=== PATIENT | male | born 1935 | race Caucasian/White ===

== ENCOUNTER 2020-07-10 20:19 | Inpatient (IN) | payer MEDICAID, SELFPAY ==
[~2020-07-10] VITALS: Ht 177.8 cm; Wt 81.6 kg
[2020-07-10 21:12] VITALS: BP 141/60
--- NOTE | 2020-07-10 21:14 | NUR ---
Triaged and waiting in ambulance.
--- NOTE | 2020-07-10 21:28 | NUR ---
PT ANGELA ALS. TAKEN TO BED 2
--- NOTE | 2020-07-10 21:30 | NUR ---
87 Y/O MALE BIBA FROM HOME C/O SOB AND LOW O2 SATS WHEN EMS ARRIVED. UNABLE TO OBTAIN ANY OTHER INFORMATION FROM THE PT AT THIS TIME DUE TO SEVERE SOB. CURRENT SATURATION OF 61% ON 15 L NRB. DIMINISHED LUNG SOUNDS THROUHGOUT BILATERALLY. PT IS USING ACCESSORY MUSCLES. ABD USE NOTED. RT CALLED TO START ON BIPAP. PT IS CONNECTED TO THE DIALYSIS TECHNICIAN. SIDE RAILSX1. BED IS LOCKED AND IN LOWEST POSITION. WILL CONTINUE TO MONITOR. PMH: UNABLE TO OTBAIN NKDA
[2020-07-10 21:31] LABS: BASOPHILS % (AUTO) 0.1 % (0.0-2.0); HEMOGLOBIN 14.1 g/dL (12.0-18.0); LYMPHOCYTES # (AUTO) 1.4 K/uL (2.0-11.5); MEAN CORPUSCULAR HEMOGLOBIN 29 pg (27-31); MEAN CORPUSCULAR HGB CONC 32 g/dL (33-37); MEAN CORPUSCULAR VOLUME 91.2 fL (80-94); MONOCYTES # (AUTO) 0.9 K/uL (0.8-1.0); MONOCYTES % (AUTO) 5.6 % (1.7-9.3); NEUTROPHILS # (AUTO) 14.5 K/uL (1.8-7.7); NEUTROPHILS % (AUTO) 86.3 % (42.2-75.2); PLATELET COUNT (AUTO) 229 K/uL (140-450); RED BLOOD CELL COUNT(AUTO) 4.83 MIL/uL (4.20-6.10); RED CELL DISTRIBUTION WIDTH 16.5 % (11.6-13.7); WHITE BLOOD COUNT (AUTO) 16.9 K/uL (4.8-10.8)
[2020-07-10 21:44] LABS: PROTHROMBIN TIME 11.4 secs (10.8-13.4)
[2020-07-10 22:05] LABS: ALBUMIN 2.9 g/dL (3.4-5.0); ANION GAP 26.3 (8-16); ASPARTATE AMINOTRANSFERASE 61 U/L (15-37); CARBON DIOXIDE 18.6 mmol/L (21-32); CHLORIDE 98 mmol/L (98-107); CREATININE 2.7 mg/dL (0.6-1.3); GLUCOSE 191 mg/dL (74-106); POTASSIUM 3.9 mmol/L (3.5-5.1); SODIUM SERUM 139 mmol/L (136-145); TOTAL BILIRUBIN 0.4 mg/dL (0.0-1.0); UREA NITROGEN, BLOOD 53 mg/dL (7-18)
--- NOTE | 2020-07-10 22:10 | NUR ---
pRT AT BEDSIDE
--- NOTE | 2020-07-10 22:15 | NUR ---
PT PLACED ON BIPAP BY RT
[2020-07-10 22:20] VITALS: BP 159/80
--- NOTE | 2020-07-10 22:21 | NUR ---
RSV, NOVEL, MILAN, FLU-A/B SWABS COLLECTED AND WALKED OVER TO LAB
[2020-07-10] MEDS ORDERED: HEPARIN PER PHARMACY MC ONE (22:30)
[2020-07-10] MEDS ORDERED: hePARIN / DEXT 5% PREMIX 250 ML IV ONE (22:30)
[2020-07-10] MEDS ORDERED: ZINC SULF 220 MG CAP PO ONE (22:35)
[2020-07-10] MEDS ORDERED: DEXAMETHASONE 10 MG/ML VIAL IVP ONE (22:35)
[2020-07-10] MEDS ORDERED: AZITHROMYCIN 1,000 MG in DEXTROSE 5% 500 ML IV ONE (22:35)
[2020-07-10 22:37] LABS: LACTATE DEHYDROGENASE 848 U/L (85-227)
[2020-07-10 22:46] LABS: RSV NEGATIVE (NEGATIVE)
[2020-07-10] MEDS ORDERED: ZOLPIDEM 5 MG TAB PO PRN (22:55)
[2020-07-10] MEDS ORDERED: POTASSIUM CHLORIDE 40 MEQ, LIDOCAINE MPF 1% 25 MG in NACL 0.9% 250 ML IV PRN (22:55)
[2020-07-10] MEDS ORDERED: DEXT 5% /NACL 0.9% 1,000 ML IV SCH (22:55)
[2020-07-10] MEDS ORDERED: ALBUTEROL HFA MDI 90 MCG/ACTUATION 8 GM INH PRN (22:55)
[2020-07-10] MEDS ORDERED: HYDROcodone/APAP 7.5/325 MG 1 TAB PO PRN (22:55)
[2020-07-10] MEDS ORDERED: guaiFENesin DM 200/20 MG-10 ML 10 ML UDC PO PRN (22:55)
[2020-07-10] MEDS ORDERED: DOCUSATE SODIUM 100 MG GELCAP PO PRN (22:55)
[2020-07-10] MEDS ORDERED: ACETAMINOPHEN 325 MG TAB PO PRN (22:55)
[2020-07-10] MEDS ORDERED: ONDANSETRON 4 MG/2 ML VIAL IM/IVP PRN (22:55)
[2020-07-10] MEDS ORDERED: NITROGLYCERIN 0.4 MG TAB SL PRN (23:00)
--- NOTE | 2020-07-10 23:00 | NUR ---
PT IS IN DISTRESS AND ANXIOUS WITH THE BIPAP MACHINE, ADMIT MD MADE AWARE. ERMD MADE AWARE OF TACHYPNEA WITH BIPAP AND INCREASED WORK OF BREATHING
[2020-07-10] MEDS ORDERED: cefTRIAXone 1,000 MG VIAL ONE (23:02)
[2020-07-10 23:03] LABS: C-REACTIVE PROTEIN QUANT 31.7 mg/dL (0.0-0.9)
[2020-07-10] MEDS ORDERED: FUROSEMIDE 40 MG/4 ML VIAL IVP SCH (23:05)
[2020-07-10] MEDS ORDERED: hePARIN / DEXT 5% PREMIX 250 ML IV SCH ×2 (23:20→23:50)
[2020-07-10] MEDS ORDERED: HEPARIN PER PHARMACY MC PRN ×2 (23:20→23:50)
[2020-07-11] VITALS (12 sets, daily range): BP systolic 85–159; BP diastolic 45–80
[2020-07-11] LABS: CHOL/HDL RATIO 2.8 (1-4.5); FREE T4 (FREE THYROXINE) 1.28 ng/dL (0.76-1.46); MAGNESIUM 2.3 mg/dL (1.8-2.4); PHOSPHORUS 5.7 mg/dL (2.5-4.9); THYROID STIMULATING HORMONE 3.2 uIU/mL (0.34-3.74)
--- NOTE | 2020-07-11 00:05 | NUR ---
NOTIFIED ADMIT OF ELEVATED RR IN THE 50s ON BIPAP. PER RT -RT REQUESTING ANXIOLYTICS. ADMIT MADE AWARE. RT TO CALL .
[2020-07-11] MEDS ORDERED: LORazepam 2 MG/ML VIAL IVP ONE (00:10)
[2020-07-11] MEDS ORDERED: hePARIN / DEXT 5% PREMIX 250 ML IV PRN (00:35)
--- NOTE | 2020-07-11 00:42 | NUR ---
PT IS IN DISTRESS AND CONTINUES TO ATTEMPT TO REMOVE BIPAP FACE MASK AT THIS TIME. PT REDIRECTED TO REST AND NOT TO REMOVE BIPAP
--- NOTE | 2020-07-11 00:43 | NUR ---
ERMD MADE AWARE OF POSSIBLE NEED FOR INTUBATION DUE TO PT REMOVING BIPAP MASK
[2020-07-11] MEDS ORDERED: AZITHROMYCIN 500 MG INJ VIAL IV ONE ×2 (00:46→00:50)
--- NOTE | 2020-07-11 00:52 | NUR ---
RT AT BEDSIDE
[2020-07-11] MEDS ORDERED: INTUBATION KIT MC ONE (00:55)
--- NOTE | 2020-07-11 00:55 | NUR ---
PT WAS INTUBATED
[2020-07-11] MEDS ORDERED: DOPPLER MC ONE (01:02)
--- NOTE | 2020-07-11 01:06 | NUR ---
PULSES RETURNED ON THE PT.
[2020-07-11] MEDS ORDERED: PROPOFOL 1000 MG/100 ML PREMIX 100 ML IV ONE ×2 (01:35→08:30)
--- NOTE | 2020-07-11 01:39 | NUR ---
PLEASE SEE CODE BLUE RECORD AND RESUSCIATION DOCUMENTATION TOOL.
--- NOTE | 2020-07-11 01:39 | NUR ---
ADMIT MD DELONG MADE AWARE OF CODE BLUE AND ROSC.
[2020-07-11] MEDS ORDERED: MORPHINE SULFATE 50 MG in NACL 0.9% 45 ML IV PRN (01:40)
--- NOTE | 2020-07-11 01:40 | NUR ---
PER MD DELONG. RASS SCORE AT -3.
[2020-07-11] MEDS ORDERED: PROPOFOL 200 MG/20 ML VIAL IV ONE (01:50)
--- NOTE | 2020-07-11 02:29 | NUR ---
GAVE REPORT TO VAIBHAV LUNA FOR TRANSFER OF CARE AT THIS TIME
--- NOTE | 2020-07-11 02:30 | NUR ---
CONT OF CARE STARTED AT THIS TIME.
[2020-07-11] MEDS ORDERED: MORPHINE SULFATE 10 MG/ML VIAL ONE (03:05)
--- NOTE | 2020-07-11 03:30 | NUR ---
RECEIVED REPORT FROM VAIBHAV AZUL.
--- NOTE | 2020-07-11 04:00 | NUR ---
F/C WAS PLACED WITH A COUDE 14 [place].
--- NOTE | 2020-07-11 05:15 | NUR ---
NG TUBE WAS PLACED. 16 [place]
--- NOTE | 2020-07-11 05:35 | NUR ---
PT WAS CLEANED UP AND BED WAS CHANGED. PT TOLERATED WELL. NO SIGN OF DISTRESS NOTED. RASS -3. QUIET ENVIRONMENT PROVIDED. WILL CONTINUE TO MONITOR
[2020-07-11 05:48] LABS: HEMATOCRIT 37.3 % (36-52); HEMOGLOBIN 12.1 g/dL (12.0-18.0); LYMPHOCYTES # (AUTO) 0.4 K/uL (2.0-11.5); MEAN CORPUSCULAR HEMOGLOBIN 29 pg (27-31); MEAN CORPUSCULAR HGB CONC 32 g/dL (33-37); MEAN CORPUSCULAR VOLUME 90.2 fL (80-94); MONOCYTES # (AUTO) 0.7 K/uL (0.8-1.0); MONOCYTES % (AUTO) 3.6 % (1.7-9.3); NEUTROPHILS # (AUTO) 17.5 K/uL (1.8-7.7); NEUTROPHILS % (AUTO) 94.4 % (42.2-75.2); PLATELET COUNT (AUTO) 190 K/uL (140-450); RED BLOOD CELL COUNT(AUTO) 4.13 MIL/uL (4.20-6.10); RED CELL DISTRIBUTION WIDTH 16.2 % (11.6-13.7); WHITE BLOOD COUNT (AUTO) 18.6 K/uL (4.8-10.8)
[2020-07-11 07:09] LABS: ALBUMIN 2.3 g/dL (3.4-5.0); ANION GAP 17.6 (8-16); ASPARTATE AMINOTRANSFERASE 199 U/L (15-37); CARBON DIOXIDE 20.4 mmol/L (21-32); CHLORIDE 105 mmol/L (98-107); CREATININE 2.6 mg/dL (0.6-1.3); GLUCOSE 216 mg/dL (74-106); SODIUM SERUM 139 mmol/L (136-145); TOTAL BILIRUBIN 0.4 mg/dL (0.0-1.0); UREA NITROGEN, BLOOD 55 mg/dL (7-18)
--- NOTE | 2020-07-11 07:20 | NUR ---
RECIEVED REPORT FROM CHERYL ESPOSITO
--- NOTE | 2020-07-11 08:34 | NUR ---
REPORT GIVEN TO VAIBHAV WOODSON VIA TELEPHONE
--- NOTE | 2020-07-11 08:47 | NUR ---
ATTEMPTED TO CALL RT TO MOVE PT TO ICU. RT IN CODE BLUE.
--- NOTE | 2020-07-11 08:51 | NUR ---
CALLED AILY MEMBERS AND SPOKE TO CLIFF. CLIFF WANTS ME TO CALL HER SISTER MIKKI AND SAID ITS OKAY TO RELEASE INFORMATION ABOUT THE PTS CONDITION. ACCORDING TO CLIFF (DAUGHTER), SHE WANTS FULL CODE MEASURES FOR THE PT.
[2020-07-11] MEDS ORDERED: COMMUNICATION ORDER MC SCH (09:00)
[2020-07-11] MEDS ORDERED: METOPROLOL 25 MG TAB PO SCH (09:00)
[2020-07-11] MEDS ORDERED: ECOTRIN 81 MG TABEC PO SCH (09:00)
[2020-07-11] MEDS ORDERED: ZINC SULF 220 MG CAP PO SCH (09:00)
[2020-07-11] MEDS ORDERED: PANTOPRAZOLE 40 MG TABEC PO SCH (09:00)
[2020-07-11] MEDS ORDERED: lisinopriL 5 MG TAB PO SCH (09:00)
[2020-07-11] MEDS ORDERED: AZITHROMYCIN 250 MG TAB PO SCH (09:00)
[2020-07-11] MEDS ORDERED: ASCORBIC ACID 500 MG TAB PO SCH (09:00)
--- NOTE | 2020-07-11 09:03 | NUR ---
DR BHANDARI WAS PAGED FOR TROPONIN [phone] AWAITING CALL BACK FROM
--- NOTE | 2020-07-11 09:45 | NUR ---
Patient will be admitted to care of DR. DELONG. Admited to ICU. Will go to room 131B. Belongings list completed. Report to VAIBHAV WOODSON.
--- NOTE | 2020-07-11 10:00 | NUR ---
DR BHANDARI CALLED BACK, AWARE OF TROPONIN AND PER MD ORDER D/C HEPARIN DRIP AND ADMINISTER LOVENOX SUBCU ORDERED.
--- NOTE | 2020-07-11 10:20 | NUR ---
PT ARRIVED FROM ER IN [facility], ETT TO VENT, RESP EVEN UNLABORED, EUAL BILAT CHEST RISE AND FALL, SKIN WARM DRY COLOR WNL, PT SEDATED WITH PROPOFOL AND MORPHINE DRIP, HR 91, RR 30, BP 108/45 O2SAT 84%, FIO2 100%, RT AT BEDSIDE, PT PLACED ON BEDSIDE SPRAY CREW. ALL SAFETY MEASURES IN PLACE.
[2020-07-11] MEDS ORDERED: DEXTROSE 50% 50 ML SYR IVP PRN (10:35)
[2020-07-11] MEDS ORDERED: INSULIN LISPRO SLIDING SCALE 100 UNITS/ML VIAL SUBQ PRN (10:35)
[2020-07-11] MEDS ORDERED: NOREPINEPHRINE 4 MG in DEXTROSE 5% 250 ML IV PRN (10:35)
[2020-07-11] MEDS ORDERED: COMMUNICATION ORDER MC PRN (10:40)
--- NOTE | 2020-07-11 10:50 | NUR ---
PROPOFOL DECREASED FOR LOW BP AND OVER SEDATION RASS -4. Addendum: 07/11/20 at 2036 by Preeti Lozoya RN DR DELONG MADE AWARE OF DECREASING BP, ORDER RECEIVED FOR LEVOPHED
[2020-07-11] MEDS ORDERED: BLOOD GLUCOSE MONITORING 1 DEV DEV FS SCH (11:30)
[2020-07-11] MEDS ORDERED: ENOXAPARIN 80 MG/0.8 ML SYR SUBQ SCH (12:00)
[2020-07-11] MEDS ORDERED: HEPARIN PER PHARMACY MC PRN (12:10)
[2020-07-11] MEDS ORDERED: hePARIN / DEXT 5% PREMIX 250 ML IV SCH (12:10)
--- NOTE | 2020-07-11 12:20 | NUR ---
CALLED DAUGHTER CLIFF MENESES VIA [employer] REAL ESTATE ATTORNEY (CAMEROONIAN) FOR PT UPDATE AND CONSENT FOR PICC LINE, TELEPHONE CONSENT OBTAINED WITH 2 RNs, CLIFF STATES HER FATHER MC MENESES DID NOT HAVE ANY HEALTH CARE ADVANCE DIRECTIVE BUT CLIFF STATES HE WOULD NOT WANT TO BE KEPT ALIVE TUBES AND WIRES. INFORMED OF OPTIONS TO PLACE HIM ON DNR, WILL NOTIFY DR DELONG.
--- NOTE | 2020-07-11 13:00 | NUR ---
DR DELONG MET WITH DAUGHTER TULIO MENESES, GRANDDAUGHTER MIKKI GONZALEZ AND OTHER FAMILY MEMBERS OUTSIDE OF HOSPITAL TO DISCUSS PT'S STATUS, FAMILY DECIDED TO PLACE PATIENT DNR.
--- NOTE | 2020-07-11 13:20 | NUR ---
ASSITED WITH FACETIME WITH FAMILY
--- NOTE | 2020-07-11 13:50 | NUR ---
UNABLE TO READ BP, PULSE NOT DETECTABLE, UNABLE TO DETECT WITH DOPPLER, SEDATION MEDS STOPPED, DR DELONG NOTIFIED.
--- NOTE | 2020-07-11 14:04 | NUR ---
PT WITH BRADYCARDIA PROGRESSED FROM 50'S TO 30'S THEN ASYSTOLE, DR DELONG AT BEDSIDE FOR EVAL, PT PRONOUNCED AT THIS TIME BY DR DELONG.
--- NOTE | 2020-07-11 14:12 | NUR ---
PHONE CALL WITH DAUGHTER TULIO AND GRAND DAUGHTER MIKKI, NOTIFIED OF OF PATIENT, DEEP CONDOLENCES OFFERED. POST MORTEM PROCEDURE REVIEWED, FAMILY WILL FIND MORTUARY AND CALL US BACK.
--- NOTE | 2020-07-11 14:55 | NUR ---
RECORD OF SIGNED BY DAUGHTER TULIO MENESES. REMAINS TO BE RELEASED TO [facility] ([phone])
--- NOTE | 2020-07-11 15:02 | NUR ---
PERSONAL BELONGINGS INCLUDING CELLPHONE RETURNED TO MIKKI IN FRONT OF HOSPITAL LOBBY.
--- NOTE | 2020-07-11 16:06 | NUR ---
[facility] , ORTHOPEDICALLY IMPAIRED TEACHER WILL CALL BACK PER ELADIA.
--- NOTE | 2020-07-11 16:29 | NUR ---
MADE CALL TO [facility] INFORMATION PROVIDED, CASE # [id number], HEALTH SAFETY AND ENVIRONMENT MANAGER WILL CALL BACK.
--- NOTE | 2020-07-11 16:35 | NUR ---
DEPUTY GUDELIA RHODES CALLED BACK FOR REPORT, INFORMATION PROVIDED, NOT A REROLLING MACHINE OPERATOR'S CASE, NO NUMBER ISSUED, BODY RELEASED, CALL IF ANY QUESTIONS.
--- NOTE | 2020-07-11 16:40 | NUR ---
[facility] DONIS, NOTIFICATION NUMBER [id number], NOT A CANDIDATE FOR ORGAN DONATION PER DONIS.
[2020-07-11] MEDS ORDERED: ATORVASTATIN 20 MG TAB PO SCH (17:00)
--- NOTE | 2020-07-11 19:02 | NUR ---
POST MORTEM CARE COMPLETED, ALL TUBINGS AND LINES REMOVED. TOE TAG PLACED, PT ID BAND REMAINS ON PT'S RIGHT WRIST, SILVER COLORED BRACELET REMOVED FROM RIGHT WRIST, WILL NOTIFY FAMILY.
--- NOTE | 2020-07-11 19:30 | NUR ---
REPORT GIVEN TO ACOUSTICAL MATERIAL WORKER NRUSE
--- NOTE | 2020-07-11 21:00 | NUR ---
[facility] CALLED; TRANSPORT ETA 4 HOURS. [phone]. TYPE COPYIST MADE AWARE.
--- NOTE | 2020-07-12 01:30 | NUR ---
BODY TAKEN TO PONCE VOGELPEDIATRIC PHYSICIAN ASSISTANT UPDATED. [facility] CALLED, INFORMED ETA 3-4 HOURS.
[2020-07-12 08:07] LABS: T4 (THYROXINE) 6.6 ug/dL (4.5-12.0)
[2020-07-12] MEDS ORDERED: PANTOPRAZOLE 40 MG INJ VIAL IVP SCH (09:00)
== END 2020-07-11 21:00 | DRG 720 ==
LOC: MED 20:19 → MTU 23:23 → MMU 07-11 05:06
PROVIDERS: ADMIT Family Medicine; ATTEND Family Medicine
PROC: 0BH17EZ Insertion of Endotracheal Airway into Trachea, Via Natural or Artificial Opening (ICD-10-PCS; principal; 2020-07-11)
PROC: 5A1935Z Respiratory Ventilation, Less than 24 Consecutive Hours (ICD-10-PCS; 2020-07-11)
DX: A41.9 Sepsis, unspecified organism (principal); U07.1 COVID-19; E83.39 Other disorders of phosphorus metabolism; R65.21 Severe sepsis with septic shock; I50.9 Heart failure, unspecified; J96.01 Acute respiratory failure with hypoxia; Z66 Do not resuscitate; N17.0 Acute kidney failure with tubular necrosis; D68.69 Other thrombophilia; E43 Unspecified severe protein-calorie malnutrition; J12.89 Other viral pneumonia; R74.01 Elevation of levels of liver transaminase levels; Z68.25 Body mass index [BMI] 25.0-25.9, adult; I25.10 Atherosclerotic heart disease of native coronary artery without angina pectoris; R77.8 Other specified abnormalities of plasma proteins; I11.0 Hypertensive heart disease with heart failure
CPT/HCPCS: 36415; 71045; 74018; 80053; 82150; 82550; 82728; 83036; 83605; 83615; 83690; 83735; 83880; 84100; 84436; 84439; 84443; 84479; 84484; 85025; 85379; 85384; 85610; 85651; 85730; 86140; 86886; 86900; 86901; 87040; 87070; 87081; 87205; 87420; 87804; 93005; 96365; 96375; 99291; J0456; J0696; J1100; J1644; J1650; J2060; J2270; J2704; J7060; U0003